=== PATIENT | female | born 1995 | race Caucasian/White ===

== ENCOUNTER 2024-05-02 02:39 | Emergency (ER) | payer BC ==
[~2024-05-02] VITALS: Ht 160 cm; Wt 68.0 kg
[2024-05-02] MEDS ORDERED: Synthroid,Levo25 MCG PO (02:47)
== END 2024-05-02 06:15 | disposition home or self-care (01) ==
LOC: ED 02:39
DX: S20.212A Contusion of left front wall of thorax, initial encounter (principal); S09.8XXA Other specified injuries of head, initial encounter; R42 Dizziness and giddiness; Z88.0 Allergy status to penicillin; Y08.89XA Assault by other specified means, initial encounter; Y93.89 Activity, other specified; Y92.009 Unspecified place in unspecified non-institutional (private) residence as the place of occurrence of the external cause; Y99.8 Other external cause status